=== PATIENT | female | born 1995 | race American Indian/Alaskan Native ===

== ENCOUNTER 2020-06-16 15:53 | Emergency (ER) | payer SELFPAY ==
[2020-06-16 17:08] VITALS: BP 137/86
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
== END 2020-06-16 19:30 | disposition home or self-care (01) ==
LOC: ED 15:53
DX: S16.1XXA Strain of muscle, fascia and tendon at neck level, initial encounter (principal); S39.012A Strain of muscle, fascia and tendon of lower back, initial encounter; R07.89 Other chest pain; Z79.899 Other long term (current) drug therapy; V49.49XA Driver injured in collision with other motor vehicles in traffic accident, initial encounter; Y93.89 Activity, other specified; Y92.488 Other paved roadways as the place of occurrence of the external cause; Y99.8 Other external cause status
CPT/HCPCS: 99281

== ENCOUNTER 2021-01-21 22:12 | Emergency (ER) | payer MEDICAID ==
[2021-01-21] MEDS ORDERED: BUTALB/ACETAMINOPHEN/CAFFEINE TAB PO ONE (22:46)
[2021-01-21 23:38] LABS: Basophils # (Auto) 0.1 K/mm3 (0.0-0.1); Basophils % (Auto) 0.7 % (0.0-1.8); Eosinophils # (Auto) 0.2 K/mm3 (0.0-0.4); Eosinophils % (Auto) 2.8 % (0.0-4.3); Hematocrit 39.2 % (30.3-42.9); Hemoglobin 12.9 gm/dl (10.1-14.3); Lymphocytes # (Auto) 2.7 K/mm3 (1.2-5.4); Lymphocytes % (Auto) 35.5 % (13.4-35.0); Mean Corpuscular HGB Conc 33 % (30-34); Mean Corpuscular Volume 85 fl (79-97); Monocytes # (Auto) 0.5 K/mm3 (0.0-0.8); Monocytes % (Auto) 7.1 % (0.0-7.3); Platelet Count 363 K/mm3 (140-440); Red Blood Count 4.63 M/mm3 (3.65-5.03); Red Cell Distribution Width 13.6 % (13.2-15.2)
[2021-01-21 23:56] LABS: Alanine Aminotransferase 26 units/L (7-56); Albumin 4.6 g/dL (3.9-5); Blood Urea Nitrogen 15 mg/dL (7-17); Calcium 9.9 mg/dL (8.4-10.2); Hemolysis Index 10
[2021-01-21 23:58] LABS: BUN/Creatinine Ratio 30
--- NOTE | 2021-01-21 23:58 | Cat Scan Report ---
CT HEAD WITHOUT CONTRAST INDICATION / CLINICAL INFORMATION: Vision changes: Right eye pain, headache. TECHNIQUE: All CT scans at this location are performed using CT dose reduction for ALARA by means of automated exposure control. COMPARISON: None available. FINDINGS: BRAIN PARENCHYMA: No acute intracranial hemorrhage. No evidence of recent infarct. No mass effect or midline shift. VENTRICULAR SYSTEM/EXTRA-AXIAL SPACES: Ventricles are normal for age. No extra-axial fluid collection . ORBITS: Normal as visualized. SKELETAL SYSTEM/SOFT TISSUES: Normal bones and soft tissues. PARANASAL SINUSES/MASTOID AIR CELLS: No significant abnormality. ADDITIONAL FINDINGS: None. IMPRESSION: Negative CT head. Signer Name: Bhavesh Landry MD Signed: 01/21/2021 11:53 PM Workstation Name: [id number]
[2021-01-22] MEDS ORDERED: KETOROLAC 30 MG/1 ML INJ IM ONE (00:29)
[2021-01-22] MEDS ORDERED: dexAMETHasone 20 MG/5 ML VIAL IM ONE (00:29)
--- NOTE | 2021-01-22 01:56 | Cat Scan Report ---
CT MAXILLOFACIAL WITHOUT CONTRAST INDICATION / CLINICAL INFORMATION: Facial pain - severe right eye pain. TECHNIQUE: All CT scans at this location are performed using CT dose reduction for ALARA by means of automated e xposure control. COMPARISON: None available. FINDINGS: FACIAL BONES: No fracture or other significant abnormality. PARANASAL SINUSES: No significant abnormality. ORBITS: Orbits appear normal. No preseptal or postseptal stranding or fluid. Optic nerves appear norm al. No acute abnormality. Bony orbits are preserved. SOFT TISSUES: No significant abnormality. VISUALIZED INTRACRANIAL STRUCTURES: No significant abnormality. ADDITIONAL FINDINGS: Periapical lucency of a right mandibular molar with disruption of the buccal cor zane. No significant stranding or organized collection. IMPRESSION: 1. No acute abnormality. 2. Right mandibular dental disease. No significant inflammatory stranding or organized collection. Signer Name: Bhavesh Landry MD Signed: 01/22/2021 1:52 AM Workstation Name: [id number]
--- NOTE | 2021-01-22 02:43 | Emergency Department Report ---
ED Eye Problem HPI - General Chief complaint: Eye Problems Stated complaint: BILATERAL EYE PAIN,HEADACHES Source: patient Mode of arrival: Ambulatory Limitations: No Limitations - History of Present Illness Initial comments: Patient is a 25-year-old -[place] female with a history of morbid obesity who presents to the ED with complaint of acute onset persistent severe right eye pain with photophobia, blurry vision and headache for the last 2 days. Patient states that the right eye pain is sharp, constant and worse with blinking or light. Patient states that the pain in her right eye radiates to the posterior scalp with persistent headache. Patient denies trauma, fall, nasal and sinus congestion, dizziness, syncope, lightheadedness, chest pain or shortness of breath, vision loss, nausea and vomiting, sore throat, cough, neck pain, or change in vision. MD chief complaint: eye pain (right eye pain; headache), other (blurry vision of right eye) -: Sudden, days(s) (2) Onset Description: sudden Location: right eye Place: home If Injury: none Eye Symptoms: pain, decreased vision, blurry vision, photophobia Severity: severe Severity scale (0 -10): 7 If Pain, Quality: sharp, throbbing Consistency: constant Associated Symptoms: headache. denies: neck pain, nausea/vomiting, cough, rhinorrhea, fever, shortness of breath Treatments Prior to Arrival: none - Related Data Patient Tetanus UTD: Yes Previous Rx's Medication Instructions Recorded Last Taken Type Naproxen [EC-Naprosyn] 500 mg PO BID PRN #14 tablet. 06/16/20 Unknown Rx methOCARBAMOL [Robaxin TAB] 500 mg PO BID PRN #14 tab 06/16/20 Unknown Rx Butalb/Acetamin/Caff 50-325-40 1 - 2 tab PO Q6HR PRN #12 tab 01/22/21 Unknown Rx [Fioricet 50-325-40] Clindamycin [Clindamycin CAP] 300 mg PO Q8H #30 cap 01/22/21 Unknown Rx Ibuprofen [Motrin] 800 mg PO Q8HR PRN #30 tablet 01/22/21 Unknown Rx Allergies Allergy/AdvReac Type Severity Reaction Status Date / Time No Known Allergies Allergy Unverified 06/16/20 17:04 ED Review of Systems ROS: Stated complaint: BILATERAL EYE PAIN,HEADACHES Other details as noted in HPI Constitutional: denies: chills, fever Eyes: eye pain (Right eye pain), vision change (Blurry vision in the right eye). denies: eye discharge ENT: denies: ear pain, throat pain Respiratory: denies: cough, shortness of breath, wheezing Cardiovascular: denies: chest pain, palpitations Endocrine: no symptoms reported Gastrointestinal: denies: abdominal pain, nausea, diarrhea Genitourinary: denies: urgency, dysuria, discharge Musculoskeletal: denies: back pain, joint swelling, arthralgia Skin: denies: rash, lesions Neurological: headache. denies: weakness, paresthesias Psychiatric: denies: anxiety, depression Hematological/Lymphatic: denies: easy bleeding, easy bruising ED Past Medical Hx - Past Medical History Previous Medical History?: No - Surgical History Past Surgical History?: No - Social History Smoking Status: Never Smoker Substance Use Type: None - Medications Home Medications: Home Medications Medication Instructions Recorded Confirmed Last Taken Type Naproxen [EC-Naprosyn] 500 mg PO BID PRN #14 tablet. 06/16/20 Unknown Rx methOCARBAMOL [Robaxin TAB] 500 mg PO BID PRN #14 tab 06/16/20 Unknown Rx Butalb/Acetamin/Caff 50-325-40 1 - 2 tab PO Q6HR PRN #12 tab 01/22/21 Unknown Rx [Fioricet 50-325-40] Clindamycin [Clindamycin CAP] 300 mg PO Q8H #30 cap 01/22/21 Unknown Rx Ibuprofen [Motrin] 800 mg PO Q8HR PRN #30 tablet 01/22/21 Unknown Rx ED Physical Exam - General Limitations: No Limitations General appearance: alert, in no apparent distress - Head Head exam: Present: atraumatic, normocephalic, normal inspection - Eye Eye exam: Present: normal appearance, PERRL, EOMI. Absent: scleral icterus, conjunctival injection, nystagmus, periorbital swelling, periorbital tenderness, other Pupils: Present: normal accommodation - ENT ENT exam: Present: normal exam, normal orophraynx, mucous membranes moist, TM's normal bilaterally, normal external ear exam - Neck Neck exam: Present: normal inspection, full ROM - Respiratory Respiratory exam: Present: normal lung sounds bilaterally. Absent: respiratory distress, wheezes, rales, stridor, chest wall tenderness, accessory muscle use, prolonged expiratory - Cardiovascular Cardiovascular Exam: Present: regular rate, normal rhythm, normal heart sounds. Absent: systolic murmur, diastolic murmur, rubs, gallop - GI/Abdominal GI/Abdominal exam: Present: soft, normal bowel sounds. Absent: distended, tenderness, guarding, hyperactive bowel sounds, hypoactive bowel sounds, organomegaly, mass, pulsatile mass - Extremities Exam Extremities exam: Present: normal inspection, full ROM, normal capillary refill - Back Exam Back exam: Present: normal inspection, full ROM. Absent: tenderness, CVA tenderness (R), CVA tenderness (L), muscle spasm, paraspinal tenderness, vertebral tenderness - Neurological Exam Neurological exam: Present: alert, oriented X3, CN II-XII intact, normal gait, reflexes normal - Psychiatric Psychiatric exam: Present: normal affect, anxious - Skin Skin exam: Present: warm, dry, intact, normal color. Absent: rash ED Course Vital Signs 01/21/21 22:19 Temperature 99.1 F Pulse Rate 89 Respiratory 18 Rate Blood Pressure 139/63 O2 Sat by Pulse 100 Oximetry ED Medical Decision Making - Lab Data Result diagrams: 01/21/21 23:08 01/21/21 23:08 - Radiology Data [facility] [address] [place] [address] Cat Scan Report Signed Patient: VANESSA MIGUEL MR #: [id number] : 1995 Acct:[id number] Age/Sex: 25 / F ADM Date: 01/21/21 Loc: ED Attending Dr: Ordering Physician: ROSELINE ROJO Date of Service: 01/21/21 Procedure(s): CT head/brain wo con Accession Number(s): [id number] cc: ROSELINE ROJO CT HEAD WITHOUT CONTRAST INDICATION / CLINICAL INFORMATION: Vision changes: Right eye pain, headache. TECHNIQUE: All CT scans at this location are performed using CT dose reduction for ALARA by means of automated exposure control. COMPARISON: None available. FINDINGS: BRAIN PARENCHYMA: No acute intracranial hemorrhage. No evidence of recent infarct. No mass effect or midline shift. VENTRICULAR SYSTEM/EXTRA-AXIAL SPACES: Ventricles are normal for age. No extra- axial fluid collection. ORBITS: Normal as visualized. SKELETAL SYSTEM/SOFT TISSUES: Normal bones and soft tissues. PARANASAL SINUSES/MASTOID AIR CELLS: No significant abnormality. ADDITIONAL FINDINGS: None. IMPRESSION: Negative CT head. Signer Name: Anderson Landry MD Signed: 01/21/2021 11:53 PM Workstation Name: [id number] Transcribed By: SUDHEER Dictated By: ANDERSON LANDRY MD Electronically Authenticated By: ANDERSON LANDRY MD Signed Date/Time: 01/21/212352 DD/ 50 TD/TT: Print [facility] [address] [place] [address] Cat Scan Report Signed Patient: VANESSA MIGUEL MR #: [id number] : 1995 A cct:[id number] Age/Sex: 25 / F ADM Date: 01/21/21 Loc: ED Attending Dr: Ordering Physician: ROSELINE ROJO Date of Service: 01/21/21 Procedure(s): CT facial bones w con Accession Number(s): [id number] cc: ROSELINE ROJO CT MAXILLOFACIAL WITHOUT CONTRAST INDICATION / CLINICAL INFORMATION: Facial pain - severe right eye pain. TECHNIQUE: All CT scans at this location are performed using CT dose reduction for ALARA by means of automated exposure control. COMPARISON: None available. FINDINGS: FACIAL BONES: No fracture or other significant abnormality. PARANASAL SINUSES: No significant abnormality. ORBITS: Orbits appear normal. No preseptal or postseptal stranding or fluid. Optic nerves appear normal. No acute abnormality. Bony orbits are preserved. SOFT TISSUES: No significant abnormality. VISUALIZED INTRACRANIAL STRUCTURES: No significant abnormality. ADDITIONAL FINDINGS: Periapical lucency of a right mandibular molar with disruption of the buccal cortex. No significant stranding or organized collection. IMPRESSION: 1. No acute abnormality. 2. Right mandibular dental disease. No significant inflammatory stranding or organized collection. Signer Name: Anderson Landry MD Signed: 01/22/2021 1:52 AM Workstation Name: [id number] Transcribed By: JS Dictated By: ANDERSON LANDRY MD Electronically Authenticated By: ANDERSON LANDRY MD Signed Date/Time: 01/22/21151 DD/ 7 TD/TT: - Medical Decision Making This is a 25-year-old -Mexican female with a history of morbid obesity who presents to the ED with complaint of acute onset persistent severe right eye pain with photophobia, blurry vision and headache for the last 2 days. Patient states that the right eye pain is sharp, constant and worse with blinking or li ght. Patient states that the pain in her right eye radiates to the posterior scalp with persistent headache. In the ED, patient is alert and oriented x3 and is not in any distress. Patient was treated for pain in the ED. The head CT scan without contrast showed no acute intracranial abnormalities or hemorrhage. Lab test results were reviewed and are all nonactionable. Facial CT scan with contrast showed no acute abnormalities except for incidental finding of right mandibular dental disease. No significant inflammatory stranding or organized collection. On reevaluation, patient's pain resolved with medications. Patient is hemodynamically stable. The right eye blurry vision still persistent. Patient was discharged home on medications and given a referral to the sleeve sewer Dr. Rob Kaye for follow-up in 2 to 3 days. Patient was advised to contact Dr. Rivas's office first thing in the morning on Sunday, January 24, 2021 to schedule a follow-up appointment with Dr. Rivas. Patient was advised return to the ED immediately if symptoms get worse. - Differential Diagnosis Migraine headache; shingles ophthalmicus; cellulitis; conjunctivitis; Critical care attestation.: If time is entered above; I have spent that time in minutes in the direct care of this critically ill patient, excluding procedure time. ED Disposition Clinical Impression: Acute pain in right eye, Dental abscess Migraine headache with aura Qualifiers: Status migrainosus presence: without status migrainosus Intractability: not intractable Qualified Code(s): G43.109 - Migraine with aura, not intractable, wi thout status migrainosus Disposition: HOME / SELF CARE / HOMELESS Is pt being admited?: No Does the pt Need Aspirin: No Condition: Stable Instructions: Migraine Headache, Layi-ng-Syel, Photophobia, Dental Abscess, [id number] Additional Instructions: The head CT scan without contrast showed no acute intracranial abnormalities or hemorrhage. The facial CT scan with contrast showed no acute abnormalities except chronic appearing dental abscess on the right mandible. Therefore take medications with food, drink plenty of fluids and follow-up the sleeve sewer Dr. Rob Kaye as advised in 2 to 3 days. Return to the ED immediately if sy mptoms get worse. Prescriptions: Clindamycin [Clindamycin CAP] 300 mg PO Q8H #30 cap Butalb/Acetamin/Caff 50-325-40 [Fioricet 50-325-40] 1 - 2 tab PO Q6HR PRN #12 tab PRN Reason: Headache Ibuprofen [Motrin] 800 mg PO Q8HR PRN #30 tablet PRN Reason: Pain , Severe (7-10) Referrals: BERNARDA RIVAS MD [Staff Physician] - 3-5 Days [facility] [Provider Group] - 7-10 days Forms: Work/School Release Form(ED) Time of Disposition: 02:47 Print Language: PAKISTANI
[2021-01-22 03:20] VITALS: BP 126/70
== END 2021-01-22 03:05 | disposition home or self-care (01) ==
LOC: ED 22:12
DX: H57.11 Ocular pain, right eye (principal); K04.7 Periapical abscess without sinus; G43.109 Migraine with aura, not intractable, without status migrainosus
CPT/HCPCS: 36415; 70450; 70486; 80053; 84703; 85025; 96372; 99284; J1100; J1885; 70487

== ENCOUNTER 2021-04-02 08:40 | Emergency (ER) | payer SELFPAY ==
[2021-04-02 08:49] VITALS: BP 132/80
--- NOTE | 2021-04-02 09:41 | Emergency Department Report ---
- General Chief Complaint: Fever Stated Complaint: FEVER Source: patient Mode of arrival: Ambulatory Limitations: No Limitations - History of Present Illness Initial Comments: 25 y/o present to ed with fever ,cough ,body ache and chills x 4 with symptom worsen over past 2 days ..Patient state taking children motrin with mild relief.Patient state she is unvaccinated to Covid .She state she took a covid test 4 days ago when the symptoms first appear but the test was negative .Patient state has been exposed to Covid and was trying to be retest .No acute distress noted .No ill appearance noted . MD Complaint: fever, cough, rhinorrhea -: Gradual Severity: mild Severity scale (0 -10): 4 Quality: aching Improves With: NSAID Worsens With: nothing Context: sick contacts Associated Symptoms: fever, chills, rhinorrhea, cough Treatments Prior to Arrival: Ibuprofen - Related Data Previous Rx's Medication Instructions Recorded Last Taken Type Naproxen [EC-Naprosyn] 500 mg PO BID PRN #14 tablet. 06/16/20 Unknown Rx methOCARBAMOL [Robaxin TAB] 500 mg PO BID PRN #14 tab 06/16/20 Unknown Rx Butalb/Acetamin/Caff 50-325-40 1 - 2 tab PO Q6HR PRN #12 tab 01/22/21 Unknown Rx [Fioricet 50-325-40] Clindamycin [Clindamycin CAP] 300 mg PO Q8H #30 cap 01/22/21 Unknown Rx Ibuprofen [Motrin] 800 mg PO Q8HR PRN #30 tablet 01/22/21 Unknown Rx Ibuprofen [Motrin 800 MG tab] 800 mg PO Q8HR PRN 15 Days #30 04/02/21 Unknown Rx tablet Allergies Allergy/AdvReac Type Severity Reaction Status Date / Time No Known Allergies Allergy Unverified 06/16/20 17:04 ED Review of Systems ROS: Stated complaint: FEVER Other details as noted in HPI Constitutional: chills, fever Eyes: denies: eye pain, eye discharge, vision change ENT: denies: ear pain, throat pain Respiratory: cough. denies: shortness of breath, wheezing Cardiovascular: denies: chest pain, palpitations Endocrine: no symptoms reported Gastrointestinal: denies: abdominal pain, nausea, diarrhea Genitourinary: denies: urgency, dysuria, discharge Musculoskeletal: denies: back pain, joint swelling, arthralgia Skin: denies: rash, lesions Neurological: denies: headache, weakness, paresthesias Psychiatric: denies: anxiety, depression Hematological/Lymphatic: denies: easy bleeding, easy bruising ED Past Medical Hx - Past Medical History Previous Medical History?: Yes Additional medical history: Vaginal delivery x 1 - Surgical History Past Surgical History?: No - Social History Smoking Status: Never Smoker Substance Use Type: None - Medications Home Medications: Home Medications Medication Instructions Recorded Confirmed Last Taken Type Naproxen [EC-Naprosyn] 500 mg PO BID PRN #14 tablet. 06/16/20 Unknown Rx methOCARBAMOL [Robaxin TAB] 500 mg PO BID PRN #14 tab 06/16/20 Unknown Rx Butalb/Acetamin/Caff 50-325-40 1 - 2 tab PO Q6HR PRN #12 tab 01/22/21 Unknown Rx [Fioricet 50-325-40] Clindamycin [Clindamycin CAP] 300 mg PO Q8H #30 cap 01/22/21 Unknown Rx Ibuprofen [Motrin] 800 mg PO Q8HR PRN #30 tablet 01/22/21 Unknown Rx Ibuprofen [Motrin 800 MG tab] 800 mg PO Q8HR PRN 15 Days #30 04/02/21 Unknown Rx tablet ED Physical Exam - General Limitations: No Limitations General appearance: alert, in no apparent distress - Head Head exam: Present: atraumatic, normocephalic - Eye Eye exam: Present: normal appearance - ENT ENT exam: Present: normal exam, mucous membranes moist - Neck Neck exam: Present: normal inspection - Respiratory Respiratory exam: Present: normal lung sounds bilaterally. Absent: respiratory distress, wheezes - Cardiovascular Cardiovascular Exam: Present: regular rate, normal rhythm. Absent: systolic murmur, diastolic murmur, rubs, gallop - GI/Abdominal GI/Abdominal exam: Present: soft, normal bowel sounds - Extremities Exam Extremities exam: Present: normal inspection - Back Exam Back exam: Present: normal inspection - Neurological Exam Neurological exam: Present: alert, oriented X3 - Psychiatric Psychiatric exam: Present: normal affect, normal mood - Skin Skin exam: Present: warm, dry, intact, normal color. Absent: rash ED Course Vital Signs 04/02/21 08:48 Temperature 99.8 F H Pulse Rate 82 Respiratory 20 Rate Blood Pressure 132/80 O2 Sat by Pulse 99 Oximetry ED Medical Decision Making - Medical Decision Making 25 y/o present to ed with fever ,cough ,body ache and chills x 4 with symptom worsen over past 2 days ..Patient state taking children motrin with mild relief.Patient state she is unvaccinated to Covid .She state she took a covid test 4 days ago when the symptoms first appear but the test was negative .Patient state has been exposed to Covid and was trying to be retest .No acute distress noted .No ill appearance noted . Discuss with plan of care with patient and to follow with primary car doctor as need .physical unremarkable . Critical care attestation.: If time is entered above; I have spent that time in minutes in the direct care of this critically ill patient, excluding procedure time. ED Disposition Clinical Impression: Suspected COVID-19 virus infection Disposition: HOME / SELF CARE / HOMELESS Is pt being admited?: No Does the pt Need Aspirin: No Condition: Stable Instructions: COVID-19 Frequently Asked Questions, COVID-19: How to Protect Yourself and Others - CDC, Prevent the Spread of COVID-19 if You Are Sick - [facility] [place] Additional Instructions: Take tylenol over the counter Follow-up primary care doctor Plenty of fluids Your symptoms appear most consistent with a nonspecific viral syndrome. However, given this current pandemic, COVID-19 is in the differential of possi bilities. Despite your previous negative COVID-19 test, I do recommend repeat outpatient Covid 19 testing. In the meantime, isolate/quarantine yourself and stay away from anyone who is elderly, immunocompromised or chronically ill. You can use ibuprofen every 6-8 hours and Tylenol every 4-8 hours, using the dosing on the back of the bottle, as needed for any fever or body aches. Return to the emergency department with any worsening of your symptoms, development of chest pain or shortness of breath, or with any acute distress. Prescriptions: Ibuprofen [Motrin 800 MG tab] 800 mg PO Q8HR PRN 15 Days #30 tablet PRN Reason: Pain, Mild (1-3) Referrals: EMILY GORMAN MD [Primary Care Provider] - 3-5 Days SILVIO REAL MD [Staff Physician] - 3-5 Days
== END 2021-04-02 09:51 | disposition home or self-care (01) ==
LOC: ED 08:40
DX: Z20.822 Contact with and (suspected) exposure to COVID-19 (principal)
CPT/HCPCS: 99282